=== PATIENT | female | born 1980 | race Caucasian/White ===

== ENCOUNTER 2020-06-22 09:10 | Outpatient (CLI) | payer OTHER, SELFPAY ==
--- NOTE | 2020-06-22 09:18 | US_ITS ---
WS: [id number] TRANSABDOMINAL PELVIC AND TRANSVAGINAL PELVIC ULTRASOUND HISTORY: PELVIC PERINEAL PAIN COMPARISON: None available. Uterus: 8.0 cm x 5.2 cm x 3.9 cm. Normal size anteverted uterus. No fibroid or mass. Endometrium: 1.0 cm. Normal homogeneous endometrium. Right ovary: 3.4 cm x 2.2 cm x 2.5 cm. Normal size ovary with small follicles. There are numerous sma ll peripheral follicles and a small amount of adjacent free fluid. Left ovary: 3.5 cm x 3.2 cm x 1.8 cm. Normal size LEFT ovary. Several small adjacent follicles. Small amount of free fluid in the cul-de-sac. Slightly greater than physiologic. US/US pelvic with transvaginal IMPRESSION: 1. Numerous small follicles within each ovary. Ovaries are not enlarged but th is may represent mild polycystic ovarian disease. 2. Small amount of free fluid in the cul-de-sac and adjacent to the RIGHT ovar y. Very minimally more than physiologic. May be due to a ruptured cyst.
== END 2020-06-22 09:11 | disposition home or self-care (01) ==
LOC: RAD 09:16
PROVIDERS: Visit Provider Family Medicine
DX: R10.2 Pelvic and perineal pain (principal)
CPT/HCPCS: 76830; 76856

== ENCOUNTER 2020-07-14 08:53 | Outpatient (CLI) | payer OTHER, SELFPAY ==
--- NOTE | 2020-07-14 08:56 | MM_ITS ---
WS: [id number] BILATERAL SCREENING DIGITAL MAMMOGRAM WITH CAD HISTORY: SCREENING COMPARISON: None available. Bilateral CC and MLO views submitted. Computer aided detection analyzed. Breast composition: The breasts are extremely dense, which lowers the sensitivity of mammography. No suspicious masses, microcalcifications or architectural distortion. MM/[id number] IMPRESSION: BI-RADS: 1-Negative FOLLOW UP: 1 Year Follow-up
== END 2020-07-14 08:54 | disposition home or self-care (01) ==
LOC: RADSHAW 08:55
PROVIDERS: PCP Family Medicine; Visit Provider Family Medicine
DX: Z12.31 Encounter for screening mammogram for malignant neoplasm of breast (principal)
CPT/HCPCS: 77067

== ENCOUNTER 2022-07-14 08:25 | Outpatient (CLI) | payer OTHER, SELFPAY ==
--- NOTE | 2022-07-14 08:34 | MM_ITS ---
WS: [id number] Bilateral screening 3D tomosynthesis digital mammogram, 07/14/2022 Clinical Data: SCREENING Comparison: 07/14/2020 Findings: The breast parenchymal pattern shows heterogeneous density. No spiculated masses or clustered calcifi cations are seen. There are no secondary signs of carcinoma. MM/[id number] Impression: 1. Negative bilateral mammogram unchanged. 2. Recommend annual screening mammograms. BIRADS: 1-Negative FOLLOW UP: 1 Year Follow-up The CAD installment account checker was used.
== END 2022-07-14 08:26 | disposition home or self-care (01) ==
LOC: RAD 08:27
PROVIDERS: PCP Family Medicine; Visit Provider Family Medicine
DX: Z12.31 Encounter for screening mammogram for malignant neoplasm of breast (principal)
CPT/HCPCS: 77063; 77067

== ENCOUNTER → 2023-04-05 15:03 | Outpatient (BNVA) | payer OTHER, SELFPAY | PROVIDERS: PCP Family Medicine; Visit Provider Nurse Practitioner Women's Health | DX: Z34.91 Encounter for supervision of normal pregnancy, unspecified, first trimester (principal); Z3A.01 Less than 8 weeks gestation of pregnancy | CPT/HCPCS: 76817; 84315; 84702; 85025; 86850; 86900 ==

== ENCOUNTER → 2023-04-11 09:50 | Outpatient (BNVA) | payer OTHER, SELFPAY | PROVIDERS: PCP Family Medicine; Visit Provider Nurse Practitioner Women's Health | DX: O03.9 Complete or unspecified spontaneous abortion without complication (principal); Z3A.08 8 weeks gestation of pregnancy | CPT/HCPCS: 84702 ==

== ENCOUNTER → 2023-04-17 14:30 | Outpatient (BNVA) | payer OTHER, SELFPAY | PROVIDERS: PCP Family Medicine; Visit Provider Nurse Practitioner Women's Health | DX: N96 Recurrent pregnancy loss (principal) | CPT/HCPCS: 84702 ==

== ENCOUNTER → 2023-04-25 15:35 | Outpatient (BNVA) | payer OTHER, SELFPAY | PROVIDERS: PCP Family Medicine; Visit Provider Obstetrics & Gynecology | DX: O03.9 Complete or unspecified spontaneous abortion without complication (principal); Z3A.08 8 weeks gestation of pregnancy | CPT/HCPCS: 84702 ==

== ENCOUNTER → 2023-05-15 15:12 | Outpatient (BNVA) | payer OTHER, SELFPAY | PROVIDERS: PCP Family Medicine; Visit Provider Nurse Practitioner Women's Health | DX: O03.9 Complete or unspecified spontaneous abortion without complication (principal); Z3A.08 8 weeks gestation of pregnancy | CPT/HCPCS: 84702 ==

== ENCOUNTER → 2023-05-17 08:27 | Outpatient (BNVA) | payer OTHER, SELFPAY | PROVIDERS: PCP Family Medicine; Visit Provider Nurse Practitioner Women's Health | DX: Z34.91 Encounter for supervision of normal pregnancy, unspecified, first trimester (principal); Z3A.08 8 weeks gestation of pregnancy | CPT/HCPCS: 84702 ==

== ENCOUNTER → 2023-05-30 11:43 | Outpatient (BNVA) | payer OTHER, SELFPAY | PROVIDERS: PCP Family Medicine; Visit Provider Nurse Practitioner Women's Health | DX: Z34.91 Encounter for supervision of normal pregnancy, unspecified, first trimester (principal); Z3A.08 8 weeks gestation of pregnancy; Z87.59 Personal history of other complications of pregnancy, childbirth and the puerperium | CPT/HCPCS: 76817; 84702 ==

== ENCOUNTER 2023-06-29 15:27 | Emergency (ER) | payer OTHER, SELFPAY ==
[2023-06-29 15:46] VITALS: BP 175/118; PULSE 102; RESP 16; TEMP 37.1; O2SAT 99
[2023-06-29 16:16] LABS: Basophils % 0.2 %; Eosinophils % 0.5 %; Hematocrit 40.4 % (36-47); Lymphocytes # 1.5 10^3/uL (0.8-4.8); Lymphocytes % 17.7 %; Mean Corpuscular HGB Conc 33.9 g/dL (30-55); Mean Corpuscular Hemoglobin 29.3 pg (27-33); Mean Corpuscular Volume 86.3 fl (85-98); Mean Platelet Volume 9.7 fL (7.4-10.4); Monocytes # 0.6 10^3/uL (0.2-0.9); Monocytes % 6.3 %; Neutrophils # 6.51 10^3/uL (1.8-7.7); Neutrophils % 75.1 %; Nucleated Red Blood Cells % 0 %; Platelet Count 199 10^3/cmm (157-399); Red Blood Count 4.68 10^6/uL (3.85-5.65); Red Cell Distribution Width 12.3 % (12.1-15.1); White Blood Count 8.68 10^3/uL (3.29-11.43)
--- NOTE | 2023-06-29 16:41 | USR_ITS ---
PROCEDURE INFORMATION: Exam: US First Trimester, Transabdominal and US , Transvaginal Exam date and time: 06/29/2023 4:58 PM Age: 43 years old Clinical indication: complicated by abdominal or pelvic pain; Other: Cramping and bleeding; Gestational age or lmp: 10w; ; Additional info: Threatened miscarriage LABS AND CLINICAL REPORTS: Gestational age (Established): 10 w 4 d Estimated due date (Established): 01/21/2024 TECHNIQUE: Imaging protocol: Real-time transabdominal obstetrical ultrasound of the maternal pelvis and a first trimester , less than 14 weeks 0 days, with image documentation. Transvaginal imaging was used for better evaluation of the fetus, adnexa, and/or cervix. COMPARISON: US OB transvaginal [id number] 05/30/2023 11:50 AM FINDINGS: Gestation: Single intrauterine gestation. Mildly irregular contour of the gestational sac. Embryonic/ heart rate: No heart tones identified. Extra-embryonic membranes/Placenta: The placenta is posterior. Amniotic fluid (Qualitative): Amount of amniotic fluid is subjectively normal for this stage of . BIOMETRY: Gestational age (AUA): See Camas-rump length (CRL) finding. Camas-rump length (CRL): Mean crown-rump length (CRL) is 1.25 cm. This corresponds to an estimated gestational age (EGA) of 7 weeks 3 days. MATERNAL: Uterus: Unremarkable. Cervix: Unremarkable. Right ovary/adnexa: Unremarkable ovary. Left ovary/adnexa: Unremarkable ovary. Intraperitoneal space: No intraperitoneal free fluid. US/US OB <= 14 weeks fetus [id number] IMPRESSION: 1. Single intrauterine gestation. No heart tones are identified. Findings are diagnostic of a nonviable . 2. Mean crown-rump length (CRL) is 1.25 cm. This corresponds to an estimated gestational age (EGA) of 7 weeks 3 days. The degree of growth is less than expected compared with the previous ultrasound.
--- NOTE | 2023-06-29 16:41 | ED_ITS ---
HPI - 2 General: Chief complaint: Vaginal Bleeding Stated complaint: cramping and spotting 10 wk preg Time Seen by Provider: 06/29/23 16:34 Source: patient Mode of arrival: ambulatory Limitations: no limitations History of Present Illness: 43-year-old female who is currently 10 w eeks states she has had some slight spotting throughout the day she had seen her OB today had a bedside state they could not find the heart rate said that her bleeding increased slightly this evening when she was getting concerned she had some mild cramping denies any severe pain Associated symptoms: Reports abdominal pain; Deny headache(s), nausea or vomiting Review of Systems 2 Const: Denies: fever(s), chills, body aches or change in appetite ENMT: Denies: throat pain or dental pain Card: Denies: chest pain Resp: Denies: dyspnea GI: Reports: abdominal pain; Denies: nausea, vomiting or diarrhea : Reports: vaginal bleeding Musc: Denies: neck pain or back pain Skin/Breast: Denies: rash Neuro: Denies: headache(s) PFSH ED 2 PFSH: Medical History Chronic hypertension Diagnosed at the age of 25 and has been on medication controlled by her primary care provider. Does not have a medical technical writer. No pertinent past medical history Denies diabetes, asthma, seizures, DVT/PE PCP: Dr. Dez Carrera Surgical History Status post tonsillectomy and adenoidectomy performed in 1989 History of rectal surgery 2016--anal fissure repair Family History Mother Hypertension Father Hypertension Family/Other Diabetes cousin Grandfather Stroke maternal Grandmother Stroke paternal Denies family history of Colon cancer Ovarian cancer Heart disease Hyperlipidemia Breast cancer Uterine cancer Thyroid disease Physical Exam 2 Const: COMMON NORMALS: no acute distress, patient oriented x3 and healthy appearing HENMT: COMMON NORMALS: normocephalic and atraumatic HEAD & SCALP: n ormocephalic and atraumatic Neck/C-Spine: COMMON NORMALS: full ROM and supple Chest: COMMONS NORMALS: normal inspection of the chest Resp: COMMON NORMALS: normal respiratory effort GI: COMMON NORMALS: Normal to inspection, nondistended, normoactive bowel sounds present, Soft to palpation, non-tender and no masses PALPATION: Yes Soft to palpation Extremity: COMMON NORMALS: normal to inspection and full ROM Neuro: COMMON NORMALS: patient oriented x3, moves all extremities and no focal motor deficits Psych: COMMON NORMALS: mental status grossly normal, Normal thought process present and cooperative THOUGHT PROCESS: Normal thought process present Skin: COMMON NORMALS: no rashes or lesions noted and no wounds GENERAL SKIN EXAM: no rashes or lesions noted Course 2 Vital Signs: Vital signs: Vital Signs Temperature 98.8 F 06/29/23 15:46 Pulse Rate 102 H 06/29/23 15:46 Respiratory Rate 16 06/29/23 15:46 Blood Pressure 175/118 06/29/23 15:46 Pulse Oximetry 99 06/29/23 15:46 Oxygen Delivery Me thod Room Air 06/29/23 15:46 MDM - OB/Uterine Contractions Medical Decision Making Patient presents for some vaginal bleeding ultrasound here showed demise. No heartbeat and was showing to be 7 weeks gestation we will give her RhoGAM here as she is Rh- she is stable for discharge follow-up with her OB. Medical Records I reviewed the patient's medical records. Lab Data I reviewed the patient's lab results. 06/29/23 16:10 Laboratory Results WBC 8.68 10^3/uL (3.29-11.43) 06/29/23 16:10 RBC 4.68 10^6/uL (3.85-5.65) 06/29/23 16:10 Hgb 13.70 g/dL (11.27-16.99) 06/29/23 16:10 Hct 40.4 % (36-47) 06/29/23 16:10 MCV 86.3 fl (85-98) 06/29/23 16:10 MCH 29.3 pg (27-33) 06/29/23 16:10 MCHC 33.9 g/dL (30-55) 06/29/23 16:10 RDW 12.3 % (12.1-15.1) 06/29/23 16:10 Plt Count 199 10^3/cmm (157-399) 06/29/23 16:10 MPV 9.7 fL (7.4-10.4) 06/29/23 16:10 Neut % (Auto) 75.1 % 06/29/23 16:10 Lymph % (Auto) 17.7 % 06/29/23 16:10 [place] % (Auto) 6.3 % 06/29/23 16:10 Eos % (Auto) 0.5 % 06/29/23 16:10 Baso % (Auto) 0.2 % 06/29/23 16:10 Neut # (Auto) 6.51 10^3/uL (1.8-7.7) 06/29/23 16:10 Lymph # (Auto) 1.5 10^3/uL (0.8-4.8) 06/29/23 16:10 [place] # (Auto) 0.6 10^3/uL (0.2-0.9) 06/29/23 16:10 Eos # (Auto) 0.0 10^3/uL (0.0-0.8) 06/29/23 16:10 Baso # (Auto) 0.0 10^3/uL (0.0-0.1) 06/29/23 16:10 Nucleated RBC % (auto) 0 % 06/29/23 16:10 Nucleated RBCs # 0.0 /100WBC 06/29/23 16:10 Ser , Semi-Qnt 9997.00 mIU/mL 06/29/23 16:10 All radiology interpretation(s) finalized by discharge Discharge Plan Discharge Patient Disposition: Home Clinical Impression: demise Condition: Stable Prescriptions: No Action ascorbic acid (vitamin C) 500 mg capsule PO cholecalciferol (vitamin D3) 25 mcg (1,000 unit) capsule 25 mcg PO DAILY DHA 200 mg capsule PO progesterone micronized 200 mg capsule 200 mg PO DAILY Qty: 30 2RF nifedipine [Procardia XL] 30 mg tablet extended release 24hr 30 mg PO DAILY Qty: 30 3RF Discharge Orders: Discharge ED (Routine); Ordered 06/29/23 Ordered By: Leo Saini Referrals: Marah Carrera MD [Primary Care Provider] - Discharge Diet: Advance as tolerated Discharge Activity: Resume usual activity Patient Instructions: Miscarriage (ED) Coding Level of Care Code ED Welt Rander for Chg Jesus
--- NOTE | 2023-06-29 18:36 | PC.NURSE ---
patient refused to wait for the Rhogam shot. Patient also complained that Dr. Saini was very rude and made distasteful remarks to her. I never witnessed Dr. Saini be rude in the room with the patient, he always seemed compassionate and caring when speaking with the patient and her spouse.
== END 2023-06-29 18:39 | disposition home or self-care (01) ==
PROVIDERS: Emergency Provider Emergency Medicine; PCP Family Medicine
DX: O02.1 Missed abortion (principal); O16.1 Unspecified maternal hypertension, first trimester; Z3A.10 10 weeks gestation of pregnancy
CPT/HCPCS: 36415; 76801; 84315; 84702; 85025; 99284

== ENCOUNTER → 2023-07-06 11:06 | Outpatient (BNVA) | payer OTHER, SELFPAY | PROVIDERS: PCP Family Medicine; Visit Provider Nurse Practitioner Women's Health | DX: O09.521 Supervision of elderly multigravida, first trimester (principal); Z3A.00 Weeks of gestation of pregnancy not specified | CPT/HCPCS: 84702; 85025 ==

== ENCOUNTER → 2023-07-14 09:32 | Outpatient (BNVA) | payer OTHER, SELFPAY | PROVIDERS: PCP Family Medicine; Visit Provider Nurse Practitioner Women's Health | DX: O03.9 Complete or unspecified spontaneous abortion without complication (principal); Z3A.00 Weeks of gestation of pregnancy not specified | CPT/HCPCS: 84702 ==

== ENCOUNTER → 2023-07-24 14:52 | Outpatient (BNVA) | payer OTHER, SELFPAY | PROVIDERS: PCP Family Medicine; Visit Provider Nurse Practitioner Women's Health | DX: O03.9 Complete or unspecified spontaneous abortion without complication (principal) | CPT/HCPCS: 84702 ==

== ENCOUNTER 2023-12-27 08:58 | Outpatient (CLI) | payer OTHER, SELFPAY ==
--- NOTE | 2023-12-27 09:42 | MM_ITS ---
WS: [id number] BILATERAL SCREENING DIGITAL TOMOSYNTHESIS MAMMOGRAM WITH CAD HISTORY: SCREENINGH COMPARISON: 07/14/2022, 07/14/2020, Bilateral CC and MLO views with tomosynthesis and synthetic mammography submitted. Computer aided det ection analyzed. Breast composition: There are scattered areas of fibroglandular density. No suspicious masses, microc alcifications or architectural distortion. Long-term stability 4 mm high density mass in the upper ou ter quadrant RIGHT breast. This nodule is an area of density and asymmetry which has been stable for several years. Breasts are normally involuting. No LEFT breast abnormality or change. MM/MM scr BI tomosynthesis [id number] IMPRESSION: BI-RADS: 2 - Benign. FOLLOW UP: 1 Year Follow-up
== END 2023-12-27 08:59 | disposition home or self-care (01) ==
LOC: RAD 08:58
PROVIDERS: PCP Family Medicine; Visit Provider Family Medicine
DX: Z12.31 Encounter for screening mammogram for malignant neoplasm of breast (principal); R92.323 Mammographic fibroglandular density, bilateral breasts; N63.11 Unspecified lump in the right breast, upper outer quadrant; N64.89 Other specified disorders of breast
CPT/HCPCS: 77063; 77067

== ENCOUNTER 2024-05-16 11:12 | Outpatient (CLI) | payer OTHER, SELFPAY ==
--- NOTE | 2024-05-16 11:14 | ECG_ITS ---
[facility]: 2024[facility]16 Pat Name: Luanne Beck Department: Room: Gender: Female Publication Manager: : 1980 Requested By: Marah Irving Order Number: [id number] Maria Del Rosario MD: ABNER ABARCA Interpretive Statements Lung unchanged pre/post procedure; Intraprocedure shortess of breath; Symptoms resoled by discharge EXERCISE DATA: The patient was exercised by Levar protocol. Baseline heart rate was 80 beats per minute. Baseline blood pressure was 140/92 millimeters of mercury. Target heart rate was 176 beats per minute. Maximum heart rate achieved was 169, which was 96 % of the target heart rate. Maximum blood pressure was 169/97 millimeters of mercury. Total exercise time was 9 minutes 54-seconds. Maximum METs achieved was 13.5, maximum VO2 was 47.3 . The reason for ending the test was maximum effort. The patient complained of shortness of breath during the stress test, which then resolved at the end of the test. ELECTROCARDIOGRAM: BASELINE: Showed sinus rhythm, normal axis, no significant ST-T changes at the baseline noted. EXERCISE: At the peak exercise level, no significant ST-T changes suggestive of ischemia noted. RECOVERY: During the recovery period, heart rate dropped appropriately. No significant ST-T changes in the recovery suggestive of ischemia noted. CONCLUSION: 1. Exercise capacity good. 2. Heart rate response was appropriate. 3. Blood pressure response was appropriate. 4. Symptoms not suggestive of ischemia. 5. Electrocardiogram portion of the stress test was not suggestive of ischemia. Electronically Signed On 06-23-2024 20:42:40 CDT by ABNER ABARCA [email or web address]
[2024-05-16 11:18] VITALS: BMI 29.8
[2024-05-16 11:57] VITALS: BP 148/98; PULSE 92
== END 2024-05-16 11:13 | disposition home or self-care (01) ==
LOC: CDL 11:13
PROVIDERS: PCP Family Medicine; Visit Provider Family Medicine
DX: R07.9 Chest pain, unspecified (principal); I10 Essential (primary) hypertension
CPT/HCPCS: 93017

== ENCOUNTER → 2024-06-11 08:07 | Outpatient (BNVA) | payer OTHER, SELFPAY | PROVIDERS: PCP Family Medicine; Visit Provider Nurse Practitioner Women's Health | DX: N91.2 Amenorrhea, unspecified (principal); N92.6 Irregular menstruation, unspecified | CPT/HCPCS: 81025; 84144; 84702; 86850; 86900 ==

== ENCOUNTER → 2024-06-13 11:01 | Outpatient (BNVA) | payer OTHER, SELFPAY | PROVIDERS: PCP Family Medicine; Visit Provider Nurse Practitioner Women's Health | DX: Z32.01 Encounter for pregnancy test, result positive (principal) | CPT/HCPCS: 84702 ==

== ENCOUNTER → 2024-06-20 15:17 | Outpatient (BNVA) | payer OTHER, SELFPAY | PROVIDERS: PCP Family Medicine; Visit Provider Nurse Practitioner Women's Health | DX: Z36.87 Encounter for antenatal screening for uncertain dates (principal) | CPT/HCPCS: 76817 ==

== ENCOUNTER → 2024-07-16 08:00 | Outpatient (BNVA) | payer OTHER, SELFPAY | PROVIDERS: PCP Family Medicine; Visit Provider Nurse Practitioner Women's Health | DX: Z34.90 Encounter for supervision of normal pregnancy, unspecified, unspecified trimester (principal) | CPT/HCPCS: 80307; 84315; 84443; 85025; 86592; 86762; 86803; 87086; 87340; 87491; 87591; 87661; 87806 ==

== ENCOUNTER → 2024-07-31 11:05 | Outpatient (BNVA) | payer OTHER, SELFPAY | PROVIDERS: PCP Family Medicine; Visit Provider Obstetrics & Gynecology | DX: Z34.90 Encounter for supervision of normal pregnancy, unspecified, unspecified trimester (principal) | CPT/HCPCS: 82950 ==

== ENCOUNTER → 2024-08-06 07:55 | Outpatient (BNVA) | payer OTHER, SELFPAY | PROVIDERS: PCP Family Medicine; Visit Provider Obstetrics & Gynecology | DX: Z34.80 Encounter for supervision of other normal pregnancy, unspecified trimester (principal) | CPT/HCPCS: 82951; 82952 ==

== ENCOUNTER → 2024-08-15 10:18 | Outpatient (BNVA) | payer OTHER, SELFPAY | PROVIDERS: PCP Family Medicine; Visit Provider Obstetrics & Gynecology | DX: Z34.90 Encounter for supervision of normal pregnancy, unspecified, unspecified trimester (principal); N96 Recurrent pregnancy loss | CPT/HCPCS: 84315; 87624 ==

== ENCOUNTER 2024-08-19 11:39 | Outpatient (CLI) | payer OTHER, SELFPAY ==
[2024-08-19 14:01] LABS: Total Volume, Urine 2500 mL
[2024-08-19 14:13] LABS: Urine Total Protein 4.7 mg/dL (0-150); Urine Total Protein 24 Hour 117.5 mg/24hr (0-150)
== END 2024-08-19 11:40 | disposition home or self-care (01) ==
PROVIDERS: Visit Provider Obstetrics & Gynecology
DX: I10 Essential (primary) hypertension (principal); Z34.90 Encounter for supervision of normal pregnancy, unspecified, unspecified trimester; N96 Recurrent pregnancy loss
CPT/HCPCS: 84156

== ENCOUNTER → 2024-08-27 08:55 | Outpatient (BNVA) | payer OTHER, SELFPAY | PROVIDERS: Visit Provider Nurse Practitioner Women's Health | DX: Z34.90 Encounter for supervision of normal pregnancy, unspecified, unspecified trimester (principal) | CPT/HCPCS: 84315 ==

== ENCOUNTER → 2024-09-25 09:04 | Outpatient (BNVA) | payer OTHER, SELFPAY | PROVIDERS: PCP Family Medicine; Visit Provider Obstetrics & Gynecology | DX: O26.892 Other specified pregnancy related conditions, second trimester (principal); Z3A.20 20 weeks gestation of pregnancy | CPT/HCPCS: 76805 ==

== ENCOUNTER → 2024-10-02 09:09 | Outpatient (BNVA) | payer OTHER, SELFPAY | PROVIDERS: PCP Family Medicine; Visit Provider Obstetrics & Gynecology | DX: Z34.82 Encounter for supervision of other normal pregnancy, second trimester (principal) | CPT/HCPCS: 84315 ==

== ENCOUNTER → 2024-10-24 08:43 | Outpatient (BNVA) | payer OTHER, SELFPAY | PROVIDERS: PCP Family Medicine; Visit Provider Nurse Practitioner Women's Health | DX: Z36.9 Encounter for antenatal screening, unspecified (principal) | CPT/HCPCS: 76816; 84315 ==

== ENCOUNTER → 2024-11-07 11:03 | Outpatient (BNVA) | payer OTHER, SELFPAY | PROVIDERS: PCP Family Medicine; Visit Provider Nurse Practitioner Women's Health | DX: Z34.90 Encounter for supervision of normal pregnancy, unspecified, unspecified trimester (principal) | CPT/HCPCS: 76816 ==

== ENCOUNTER → 2024-11-27 08:05 | Outpatient (BNVA) | payer OTHER, SELFPAY | PROVIDERS: PCP Family Medicine; Visit Provider Obstetrics & Gynecology | DX: Z34.90 Encounter for supervision of normal pregnancy, unspecified, unspecified trimester (principal) | CPT/HCPCS: 82950; 84315; 85025; 86850 ==

== ENCOUNTER → 2024-12-05 08:07 | Outpatient (BNVA) | payer OTHER, SELFPAY | PROVIDERS: PCP Family Medicine; Visit Provider Nurse Practitioner Women's Health | DX: Z34.90 Encounter for supervision of normal pregnancy, unspecified, unspecified trimester (principal) | CPT/HCPCS: 84315 ==

== ENCOUNTER 2024-12-10 07:03 | Outpatient (CLI) | payer OTHER, SELFPAY ==
--- NOTE | 2024-12-10 07:15 | USR_ITS ---
PROCEDURE INFORMATION: Exam: US , Follow up Exam date and time: 12/10/2024 7:12 AM Age: 44 years old Clinical indication: Screening exam; Routine US, uterus; Additional info: Z34.90 - encounter for supervision of normal , u. . . , Please schedule ultrasound between 12/02-12/18 LABS AND CLINICAL REPORTS: Gestational age (Established): 31 w 4 d Estimated due date (Established): 02/07/2025 TECHNIQUE: Imaging protocol: Transabdominal ultrasound of the uterus, real time with image documentation. Follow-up (eg, re-evaluation of size by measuring standard growth parameters and amniotic fluid volume, re-evaluation of organ system(s) suspected or confirmed to be abnormal on a previous scan). COMPARISON: [place] [id number] 11/07/2024 11:07 AM FINDINGS: Gestation: Intrauterine gestation. heart rate: 136 bpm Placenta: Anterior placenta BIOMETRY: Estimated weight: 1748.75 g. EFW by AC, BPD, FL, HC, [place] 1985 , 31% percentile Biparietal diameter (BPD): 7.91 cm. EGA (BPD) is 31 w 5 d. 45.4 % percentile Head circumference (HC): 28.83 cm. EGA (HC) is 31 w 5 d. 17.8 % percentile Abdominal circumference (AC): 26.94 cm. EGA (AC) is 31 w 0 d. 31.6 % percentile Femur length (FL): 6.09 cm. EGA (FL) is 31 w 4 d. 37.9 % percentile HC/AC: 1.07. (Normal range: 0.96 - 1.15) FL/HC: 21.12. (Normal range: 19.19 - 21.3) FL/BPD: 76.99. (Normal range: 71 - 87) FL/AC: 22.61. (Normal range: 20 - 24) MATERNAL: Cervix: Cervical length measures 3.8 cm. Cervix measures 3.8 cm and is closed. Other findings: Cephalic position US/[place] [id number] IMPRESSION: Single live intrauterine gestation with gestational age measuring 31 weeks, 4 days.
== END 2024-12-10 07:04 | disposition home or self-care (01) ==
LOC: RAD 07:05
PROVIDERS: PCP Family Medicine; Visit Provider Obstetrics & Gynecology
DX: Z34.93 Encounter for supervision of normal pregnancy, unspecified, third trimester (principal); Z3A.31 31 weeks gestation of pregnancy
CPT/HCPCS: 76816; 82951; 82952

== ENCOUNTER 2024-12-10 07:41 | Outpatient (CLI) | payer OTHER, SELFPAY ==
[2024-12-10 07:38] VITALS: BMI 34.2
[2024-12-10] MEDS: betamethasone susp 6 mg/mL 5 mL 12 MG IM (07:50)
== END 2024-12-10 07:52 | disposition home or self-care (01) ==
LOC: OPOB 07:41
PROVIDERS: PCP Family Medicine; Visit Provider Family Medicine
DX: O13.9 Gestational [pregnancy-induced] hypertension without significant proteinuria, unspecified trimester (principal); Z3A.00 Weeks of gestation of pregnancy not specified
CPT/HCPCS: 96372; J0702

== ENCOUNTER 2024-12-11 07:13 | Outpatient (CLI) | payer OTHER, SELFPAY ==
[2024-12-11 07:17] VITALS: RESP 18; BMI 34.2
[2024-12-11] MEDS: betamethasone susp 6 mg/mL 5 mL 12 MG IM (07:25)
== END 2024-12-11 07:25 | disposition home or self-care (01) ==
LOC: OPOB 07:14
PROVIDERS: PCP Family Medicine; Visit Provider Obstetrics & Gynecology
DX: O13.9 Gestational [pregnancy-induced] hypertension without significant proteinuria, unspecified trimester (principal); Z3A.00 Weeks of gestation of pregnancy not specified
CPT/HCPCS: 96372; J0702

== ENCOUNTER → 2024-12-18 10:53 | Outpatient (BNVA) | payer OTHER, SELFPAY | PROVIDERS: PCP Family Medicine; Visit Provider Obstetrics & Gynecology | DX: Z34.90 Encounter for supervision of normal pregnancy, unspecified, unspecified trimester (principal); I10 Essential (primary) hypertension | CPT/HCPCS: 84315 ==

== ENCOUNTER 2024-12-30 09:01 | Outpatient (CLI) | payer OTHER, SELFPAY ==
[2024-12-30 11:13] LABS: Total Volume, Urine 3050 mL
== END 2024-12-30 09:02 | disposition home or self-care (01) ==
LOC: LAB 09:02
PROVIDERS: PCP Family Medicine; Visit Provider Obstetrics & Gynecology
DX: I10 Essential (primary) hypertension (principal)
CPT/HCPCS: 84156

== ENCOUNTER 2024-12-31 09:40 | Outpatient (CLI) | payer OTHER, SELFPAY ==
[2024-12-31] VITALS (102 sets, daily range): BP systolic 133–191; BP diastolic 66–98; PULSE 74–108; RESP 16–18; O2SAT 92–97; BMI 34.2
--- NOTE | 2024-12-31 10:30 | USR_ITS ---
PROCEDURE INFORMATION: Exam: US Biophysical Profile Without Non-Stress Test Exam date and time: 12/31/2024 11:49 AM Age: 44 years old Clinical indication: Condition or disease; Other: Gdm; ; Additional info: Gdm, ama, severe hypertension, pulsatility index of ua TECHNIQUE: Imaging protocol: US biophysical profile without non-stress testing. COMPARISON: [place] [id number] 12/10/2024 7:12 AM FINDINGS: heart rate: 135 bpm presentation and position: Cephalic presentation. Placenta: Anterior placenta. Amniotic fluid index: JEMIMA is 9.55 cm. This is normal. BIOPHYSICAL PROFILE: breathing (BPP): 2 out of 2. gross body movement (BPP): 2 out of 2. tone (BPP): 2 out of 2. Amniotic fluid (BPP): 2 out of 2. BIOMETRY: Gestational age (AUA): Stated gestational age is 34 weeks and 4 days. Estimated due date (AUA): Estimated date of delivery is February 07, 2025. MATERNAL ANATOMY: Cervix: Cervical length measures 5 cm, but mostly obscured by shadowing. Vasculature: Normal Doppler signal in the umbilical cord vessels. US/US OB lm w fetalBPP woNST &umb IMPRESSION: 1. Normal biophysical profile score of 8/8. 2. Additional details as above.
[2024-12-31 10:50] LABS: Add Urine Microscopic? NO
[2024-12-31 10:51] LABS: Hematocrit 34.5 % (36-47); Hemoglobin 11.80 g/dL (11.27-16.99); Mean Corpuscular HGB Conc 34.2 g/dL (30-55); Mean Corpuscular Hemoglobin 29.5 pg (27-33); Mean Corpuscular Volume 86.3 fl (85-98); Nucleated Red Blood Cells % 0 %; Platelet Count 141 10^3/cmm (157-399); Red Blood Count 4.00 10^6/uL (3.85-5.65); White Blood Count 8.83 10^3/uL (3.29-11.43)
[2024-12-31 10:56] LABS: Glucose Urine UA Negative (Normal); Nitrate Urine Negative (Negative); Specific Gravity, Urine 1.007 (1.005-1.030)
[2024-12-31 11:03] LABS: Charge for UA Resulting for Rev
[2024-12-31 11:11] LABS: Alanine Aminotransferase 18 U/L (0-33); Albumin Level 3.9 g/dL (3.5-5.2); Alkaline Phosphatase 80 U/L (35-105); Anion Gap 17.9 (5-19); Aspartate Amino Transferase 19 U/L (0-32); Blood Urea Nitrogen 11 mg/dL (6-20); Calcium 10.2 mg/dL (8.5-10.5); Carbon Dioxide 21 mmol/L (22-29); Chloride 104 mmol/L (98-107); Globulin 2.7 g/dL (1.3-4.6); Glucose 73 mg/dL (65-115); Osmolality Calculated 286 mOsm/kg (285-295); Potassium 3.9 mmol/L (3.5-5.1); Sodium 139 mmol/L (136-145); Total Protein 6.6 g/dL (6.6-8.7); Uric Acid 6.4 mg/dL (2.4-5.7)
[2024-12-31 11:13] LABS: UPRO/UCREAT Ratio 0.11 mg/mg CR
[2024-12-31] MEDS: labetalol 5 mg/mL SDV 20mL 20 MG IVP (15:05)
[2024-12-31 15:44] LABS: PCP Screen Urine Negative (Negative)
--- NOTE | 2024-12-31 15:55 | PM.TDS ---
Transfer Summary Providers Date of Admission: 12/31/2024 Date of Discharge/Transfer: 12/31/24 Attending Provider at Transfer: Santos Polo MD Transfer Plans: Anticipated date of transfer: 12/31/24. Receiving Facility: [facility]. Receiving Provider: Dr Lou. Diagnoses at Discharge Other Information Additional DC diagnoses/information: PAP 2021---> Normal per patient OB Ultrasound 11/07/24 FINDINGS: Gestation: There is a single live intrauterine ( biometry not performed on today's exam). heart rate: Normal cardiac activity measuring 144 bpm. Placenta: The placenta is fundal and otherwise unremarkable. Amniotic fluid index: Normal JEMIMA = 11.5 cm. spine: Limited study to evaluate the spine which was not visualized on the prior study. The spine is grossly normal. MATERNAL: Cervix: The cervix is closed and measures 4 cm in length. US/ [place] [id number] IMPRESSION: Limited study to follow-up the spine. The spine is grossly normal. 09/25/24 FINDINGS: Gestation: Single live intrauterine gestation. heart rate: 150 bpm. presentation and position: Vertex. Placenta: Anterior/fundal. No previa. Amniotic fluid (Qualitative): Adequate amount of amniotic fluid. ANATOMY: midline falx: Normal cerebellum: Normal lateral ventricles: Normal cisterna magna: Normal choroid plexus: Normal face: Normal heart four-chamber view, heart size and position: Normal heart right ventricular outflow tract: Normal heart left ventricular outflow tract: Normal diaphragm: Normal kidneys: Normal stomach: Normal urinary bladder: Normal spine: Normal Umbilical cord and insertion: Normal. Normal 3 vessel cord upper limbs: Normal lower limbs: Normal BIOMETRY: Gestational age (AUA): 20 weeks 4 days Estimated due date (AUA): 02/08/2025 Estimated weight: 373 g 46% Biparietal diameter (BPD): 4.74 cm 33% Head circumference (HC): 17.99 cm 28% Abdominal circumference (AC): 15.56 cm 44% Femur length (FL): 3.44 cm 45% MATERNAL: Uterus: Unremarkable. Cervix: Unremarkable closed cervix measuring 3.1 cm in length. Right ovary/adnexa: Obscured by lack of adequate acoustic window. Left ovary/adnexa: Obscured by lack of adequate acoustic window. Intraperitoneal space: No intraperitoneal free fluid. 06/20/2024 FINDINGS: Gestation: There is a single live intrauterine . A yolk sac is visualized measuring about 3 mm. heart rate is 137 bpm. No evidence for a subchorionic hemorrhage or other abnormality. Gestational age based on a crown-rump length measurement of 7.7 mm at 6 weeks 5 days. Estimated due date 02/08/2025. Uterus is unremarkable. A 2 cm simple cyst is seen in the right ovary. The left ovary could not be visualized. Other History: ?4 SAB ? 4 - 1 ---> 08/2000, conceived on clomid, , female, ()6lbs 15 ounces, complicated by Hypertension at term. 2 ---> 01/2010, conceived on femara, , female, 8 lbs 5 ounces, no complications . 3 ---> 2011, chemical while on femara induction 4 ---> 07/2012, spontaneous conception, blighted ovum with SAB 5 ---> 09/15/2015, full-term vaginal delivery after Cytotec induction of baby boyKhang weighing 8 lbs. 2 oz. over a first-degree vaginal laceration. No immediate complications. Done by Dr. Robbins [facility] [place]. This was a spontaneous . 6 ---> 11/04/2018, 39 week induction for chronic hypertension, male,(Teo), 7 lbs 5 ozs, 39 wks, epidural, delivered by Dr Azevedo, at [place], [place]. This was a spontaneous 7 ---> 04/15/23, SAB < 6 weeks, no intervention needed 8 ---> 07/06/2023, SAB at 11 weeks, no intervention needed 9 ---> current Reason for Visit Reason for Visit NST for CHTN and GDM Brief History: Luanne is a 44-year-old at 34.4 weeks gestation by LMP consistent with 6-week ultrasound. Her is complicated by chronic hypertension on labetalol, gestational diabetes on metformin, history of multiple miscarriages, history of preeclampsia in first , history of genital herpes without recent outbreak not currently on suppressive therapy, advanced maternal age, anxiety. Hospital Course Hospital Course The patient presented to labor delivery triage for concerns of elevated blood pressures. She notes that yesterday her blood pressures had started to increase especially and she started feeling unwell. She started having symptoms of headache, nausea, blurred vision and chest tightness. She presented to labor and delivery triage around 9:30 AM on 12/31/2024 and her blood pressures were 168/96 followed by 156/90. The patient has been taking labetalol 200 mg twice a day at home. Her blood pressures had been well before this. The patient was put on bedrest for observation and her blood pressures initially improved into the 140s systolic. Unfortunately they started to climb again into the 150s systolic, so the patient was given labetalol 100 mg by mouth at approximately 1245 this afternoon. Her blood pressure did not respond well to this and got as high as 191/89. She was given labetalol 20 mg IV and her blood pressure has decreased down to 146/78 with this. I am concerned that the patient has findings concerning for chronic hypertension with severe features. Being that she is only 34 weeks and 4 days, her risk for the needing a NICU stay would be elevated. We do not deliver prior to 35 weeks at this location intentionally as we do not have a NICU in house. For this reason I spoke with the patient regarding her blood pressure findings and that based on recommendations she would likely need to be delivered. We discussed that transfer to another location with the NICU would be the recommendation. The patient is in agreement with this. I spoke with Dr. Lou at [facility] in [place] who is in agreement and the patient will be transferred by ambulance. The patient will be started on IV magnesium with a 4 g bolus and 2 g/h for hypertension with severe features. Currently she is stable. I am covering for Dr. Glover and did not previously see that she has a history of genital herpes. The patient will need to be evaluated for any lesions prior to induction of labor. Physical Exam Narrative: General: Alert and oriented x3 Eyes: Pupils equal round and reactive to light and accommodation Mouth: Mucous membranes moist, pharynx non-erythematous Cardiac: Regular rate and rhythm without murmurs Lungs: Clear to auscultation bilaterally without wheezes, crackles or rhonchi Abdomen: Soft, non-tender, fundus consistent with gestational age Extremities: Trace edema in the bilateral lower extremities, brisk bilateral deep tendon reflexes in the lower extremities TS Data Studies Completed and Pending Completed Studies During Hospitalization Category Date Time Status US OB lm w fetalBPP woNST &umb Urgent Ultrasound 12/31/24 10:30 Completed Laboratory Last Values WBC 8.83 10^3/uL (3.29-11.43) 12/31/24 10:40 RBC 4.00 10^6/uL (3.85-5.65) 12/31/24 10:40 Hgb 11.80 g/dL (11.27-16.99) 12/31/24 10:40 Hct 34.5 % (36-47) L 12/31/24 10:40 MCV 86.3 fl (85-98) 12/31/24 10:40 MCH 29.5 pg (27-33) 12/31/24 10:40 MCHC 34.2 g/dL (30-55) 12/31/24 10:40 RDW 13.1 % (12.1-15.1) 12/31/24 10:40 Plt Count 141 10^3/cmm (157-399) L 12/31/24 10:40 MPV 10.2 fL (7.4-10.4) 12/31/24 10:40 Neut % (Auto) 73.3 % 12/31/24 10:40 Lymph % (Auto) 15.5 % 12/31/24 10:40 Spencer % (Auto) 9.2 % 12/31/24 10:40 Eos % (Auto) 1.0 % 12/31/24 10:40 Baso % (Auto) 0.1 % 12/31/24 10:40 Neut # (Auto) 6.47 10^3/uL (1.8-7.7) 12/31/24 10:40 Lymph # (Auto) 1.4 10^3/uL (0.8-4.8) 12/31/24 10:40 Spencer # (Auto) 0.8 10^3/uL (0.2-0.9) 12/31/24 10:40 Eos # (Auto) 0.1 10^3/uL (0.0-0.8) 12/31/24 10:40 Baso # (Auto) 0.0 10^3/uL (0.0-0.1) 12/31/24 10:40 Nucleated RBC % (auto) 0 % 12/31/24 10:40 Nucleated RBCs # 0.0 /100WBC 12/31/24 10:40 Sodium 139 mmol/L (136-145) 12/31/24 10:40 Potassium 3.9 mmol/L (3.5-5.1) 12/31/24 10:40 Chloride 104 mmol/L (98-107) 12/31/24 10:40 Carbon Dioxide 21 mmol/L (22-29) L 12/31/24 10:40 Anion Gap 17.9 (5-19) 12/31/24 10:40 BUN 11 mg/dL (6-20) 12/31/24 10:40 Creatinine 0.8 mg/dL (0.5-0.9) 12/31/24 10:40 GFR Calculation 77.9 mL/min (90-130) L 12/31/24 10:40 Glucose 73 mg/dL (65-115) 12/31/24 10:40 Calculated Osmolality 286 mOsm/kg (285-295) 12/31/24 10:40 Uric Acid 6.4 mg/dL (2.4-5.7) H 12/31/24 10:40 Calcium 10.2 mg/dL (8.5-10.5) 12/31/24 10:40 Total Bilirubin 0.5 mg/dL (0.15-1.2) 12/31/24 10:40 AST 19 U/L (0-32) 12/31/24 10:40 ALT 18 U/L (0-33) 12/31/24 10:40 Alkaline Phosphatase 80 U/L (35-105) 12/31/24 10:40 Lactate Dehydrogenase 154 U/L (135-214) 12/31/24 10:40 Total Protein 6.6 g/dL (6.6-8.7) 12/31/24 10:40 Albumin 3.9 g/dL (3.5-5.2) 12/31/24 10:40 Globulin 2.7 g/dL (1.3-4.6) 12/31/24 10:40 Urine Color Yellow (Yellow) 12/31/24 10:30 Urine Appearance Clear (CLEAR) 12/31/24 10:30 Urine pH 6.5 (5-7) 12/31/24 10:30 Ur Specific Allen 1.007 (1.005-1.030) 12/31/24 10:30 Urine Protein Negative (Negative) 12/31/24 10:30 Urine Glucose (UA) Negative (Normal) 12/31/24 10:30 Urine Ketones Negative (Negative) 12/31/24 10:30 Urine Blood Negative (Negative) 12/31/24 10:30 Urine Nitrate Negative (Negative) 12/31/24 10:30 Urine Bilirubin Negative (Negative) 12/31/24 10:30 Urine Urobilinogen 0.2 mg/dL (Negative) 12/31/24 10:30 Ur Leukocyte Esterase Negative (Negative) 12/31/24 10:30 Amorphous Sediment Not Reportable 12/31/24 10:30 U Random Total Protein 4 mg/dL 12/31/24 10:30 Urine Creatinine 36 mg/dL (28-217) 12/31/24 10:30 Protein/Creatinin Ratio 0.11 mg/mg CR 12/31/24 10:30 Urine Opiates Screen Negative ng/mL (Negative) 12/31/24 10:30 Ur Barbiturates Screen Negative ng/mL (Negative) 12/31/24 10:30 Ur Phencyclidine Scrn Negative ng/mL (Negative) 12/31/24 10:30 Ur Amphetamines Screen Negative ng/mL (Negative) 12/31/24 10:30 U Benzodiazepines Scrn Negative ng/mL (Negative) 12/31/24 10:30 Urine Cocaine Screen Negative ng/mL (Negative) 12/31/24 10:30 U Marijuana (THC) Screen Negative ng/mL (Negative) 12/31/24 10:30 Radiology Impressions Obstetrics US/Biophysical Profile 12/31/24 10:30 IMPRESSION: 1. Normal biophysical profile score of 8/8. 2. Additional details as above. Recent Clincial Data Last Vital Signs Pulse 81 12/31/24 15:50 Resp 18 12/31/24 09:58 BP 133/66 12/31/24 15:50 Vital Signs Pulse Resp BP 12/31/24 15:50 81 12/31/24 15:50 133/66 12/31/24 15:41 87 12/31/24 15:41 146/78 12/31/24 15:31 90 12/31/24 15:31 162/90 12/31/24 15:20 84 12/31/24 15:20 141/75 12/31/24 14:55 96 12/31/24 14:55 191/89 12/31/24 14:25 93 12/31/24 14:25 155/76 12/31/24 13:55 77 12/31/24 13:55 162/83 12/31/24 13:25 80 12/31/24 13:25 153/90 12/31/24 12:42 90 12/31/24 12:42 151/94 12/31/24 12:28 75 12/31/24 12:28 141/87 12/31/24 12:13 76 12/31/24 12:13 139/87 12/31/24 11:58 81 12/31/24 11:58 146/93 12/31/24 11:42 90 12/31/24 11:42 145/89 12/31/24 11:28 80 12/31/24 11:28 140/84 12/31/24 11:12 82 12/31/24 11:12 154/96 12/31/24 10:58 77 12/31/24 10:58 155/98 12/31/24 10:43 76 12/31/24 10:43 172/96 12/31/24 10:30 74 12/31/24 10:30 160/89 12/31/24 10:13 76 156/90 12/31/24 09:58 18 12/31/24 09:56 78 168/96 Intake & Output/Weight 12/29/24 12/30/24 12/31/24 01/01/25 06:59 06:59 06:59 06:59 Weight 212 lb 8 oz Vitals Last Vital Signs Pulse 81 12/31/24 15:50 Resp 18 12/31/24 09:58 BP 133/66 12/31/24 15:50 TS Medications Medications Hydralazine HCl (Hydralazine 20 Mg/Ml Inj 1 Ml) 20 mg IVP PRN PRN; Protocol PRN Reason: HYPERTENSION Hydralazine HCl (Hydralazine 20 Mg/Ml Inj 1 Ml) 10 mg IVP PRN PRN; Protocol PRN Reason: HYPERTENSION Hydralazine HCl (Hydralazine 20 Mg/Ml Inj 1 Ml) 5 mg IVP PRN PRN; Protocol PRN Reason: HYPERTENSION Labetalol HCl (Labetalol 5 Mg/Ml Sdv 20ml) 20 mg IVP PRN PRN; Protocol PRN Reason: HYPERTENSION Last Admin: 12/31/24 15:05 Dose: 20 mg Labetalol HCl (Labetalol 5 Mg/Ml Sdv 20ml) 40 mg IVP PRN PRN; Protocol PRN Reason: HYPERTENSION Labetalol HCl (Labetalol 5 Mg/Ml Sdv 20ml) 80 mg IVP PRN PRN; Protocol PRN Reason: HYPERTENSION Labetalol HCl (Labetalol 5 Mg/Ml Sdv 20ml) 40 mg IVP PRN PRN; Protocol PRN Reason: HYPERTENSION Discontinued Medications Labetalol HCl (Labetalol 200 Mg Tablet) 100 mg PO NOW ONE Stop: 12/31/24 12:46 Last Admin: 12/31/24 13:29 Dose: 100 mg Allergies Penicillins Allergy (Verified 12/31/24 08:56) Hives---can take Keflex has taken amoxicillin and Keflex in the past without ant problems Home Medications docosahexaenoic acid 200 mg capsule ( DHA) mg PO 04/05/23 [History Confirmed 12/31/24] pyridoxine (vitamin B6) 10 mg tablet 100 mg PO DAILY 08/15/24 [History Confirmed 12/31/24] doxylamine succinate 25 mg tablet (Unisom (doxylamine)) 25 mg PO Q6H PRN 10/02/24 [History Confirmed 12/31/24] labetalol 200 mg tablet 200 mg PO BID #90 tabs 12/05/24 [Rx Confirmed 12/31/24] progesterone micronized 200 mg capsule 200 mg PO DAILY #90 caps 12/05/24 [Rx Confirmed 12/31/24] metformin 500 mg tablet,extended release 24 hr 500 mg PO DAILY #60 tabs 12/25/24 [Rx Confirmed 12/31/24] diph,pertuss(acel),tet vac(PF) 2 Lf-(2.5-5-3-5mcg)-5 Lf/0.5 mL IM syringe (Adacel (Tdap Adolesn/Adult)(PF)) 0.5 ml IM ONCE #0.5 mL 12/31/24 [Rx Confirmed 12/31/24] Discharge Plan Discharge Patient Disposition: Home Prescriptions: No Action DHA 200 mg capsule PO pyridoxine (vitamin B6) 10 mg tablet 100 mg PO DAILY Unisom (doxylamine) 25 mg tablet 25 mg PO Q6H PRN labetalol 200 mg tablet 200 mg PO BID Qty: 90 0RF Rx Instructions: take one tab once twice daily progesterone micronized 200 mg capsule 200 mg PO DAILY Qty: 90 1RF Rx Instructions: take one capsule daily Adacel(Tdap Adolesn/Adult)(PF) 2 Lf-(2.5-5-3-5 mcg)-5Lf/0.5 mL syringe 0.5 ml IM ONCE Qty: 0.5 0RF metformin 500 mg tablet extended release 24 hr 500 mg PO DAILY Qty: 60 1RF Rx Instructions: take once daily with dinner Print Language: Romanian Transfer Attestations Time Spent in Transfer Care: greater than 30 min Quality Metrics Clinical Quality Measures [ No reported AMI, CVA or VTE this stay] Coding Level of Care Code Acute Code for Chg Jesus
[2024-12-31] MEDS: magnesium sulfate premix 4 GM/100 ML PREMIX IV (16:39)
[2024-12-31] MEDS: magnesium sulfate premix 20 GM/500 ML BAG IV (17:03)
--- NOTE | 2024-12-31 17:18 | PC.NURSE ---
Spoke with [facility] at this time. Will likely be around 3 hours before patient can be transported. Updated Dr. Polo at this time.
== END 2024-12-31 21:05 | disposition other institution (70) ==
LOC: OPOB 09:45 → OBGYN 09:45
PROVIDERS: Family Medicine; Visit Provider Obstetrics & Gynecology
DX: O13.9 Gestational [pregnancy-induced] hypertension without significant proteinuria, unspecified trimester (principal); Z3A.00 Weeks of gestation of pregnancy not specified
CPT/HCPCS: 36415; 36416; 51702; 59025; 76815; 76819; 76820; 80053; 80306; 81000; 81003; 82570; 82962; 83615; 83986; 84156; 84550; 85025; 99211; J3475; J3490; J7030; J7121; J9999